=== PATIENT | female | born 1950 | race Caucasian/White ===

== ENCOUNTER 2016-12-19 18:29 | Emergency (ER) | payer MEDICARE, OTHER ==
[2016-12-19 18:53] VITALS: BMI 27.0
[2016-12-19 18:55] VITALS: BP 165/90; PULSE 105; RESP 18; TEMP 98.7; O2SAT 95
--- NOTE | 2016-12-19 19:26 | C.PDOC ---
History Of Present Illness 66 year old female with history of gout complains of left knee pain for 3 days. Patient noticed some swelling to the area yesterday and took Tylenol with no relief. Patient denies direct trauma/injury to affected area, extremity numbness /weakness. Time Seen by Provider: 12/19/16 19:09 Chief Complaint (Nursing): Lower Extremity Problem/Injury History Per: Patient History/Exam Limitations: no limitations Onset/Duration Of Symptoms: Days (3) Current Symptoms Are (Timing): Still Present Additional History Per: Patient - Knee Description Of Injury: denies: Fell, Struck With Object, Struck Against Object, Twisted Past Medical History Reviewed: Historical Data, Nursing Documentation, Vital Signs Vital Signs: Last Vital Signs Temp 98.7 F 12/19/16 18:52 Pulse 105 H 12/19/16 18:52 Resp 18 12/19/16 18:52 BP 165/90 H 12/19/16 18:52 Pulse Ox 95 12/19/16 20:18 - Medical History PMH: Asthma, COPD, HTN Surgical History: No Surg Hx - [facility] Procedures ESOPHAGOGASTRODUODENOSCOPY [EGD] W/CLOSED BIOPSY (07/09/13) NEBULIZER THERAPY (02/09/14) Family History: States: Unknown Family Hx - Social History Hx Alcohol Use: No Hx Substance Use: No - Immunization History Hx Tetanus Toxoid Vaccination: No Hx Influenza Vaccination: No Hx Pneumococcal Vaccination: No Review Of Systems Musculoskeletal: Positive for: Other (left knee pain and swelling ) Neurological: Negative for: Weakness, Numbness Physical Exam - Physical Exam Appears: Non-toxic, No Acute Distress Skin: Normal Color, Warm, Dry, Other (+erythema to left knee ) Head: Atraumatic, Normacephalic Eye(s): bilateral: Normal Inspection Oral Mucosa: Moist Neck: Supple Extremity: Normal ROM, Tenderness (mild to left knee ), No Calf Tenderness, Capillary Refill (less than 2 seconds ), No Deformity, Swelling (mild to left knee ) Pulses: Left Dorsalis Pedis: Normal Neurological/Psych: Normal Speech, Normal Cognition Gait: Steady ED Course And Treatment O2 Sat by Pulse Oximetry: 95 (on RA) Pulse Ox Interpretation: Normal Medical Decision Making Medical Decision Making: Patient with left knee pain for 3 days, no injury and has history of gout. Exam shows tenderness, erythema and mild swelling. Symptoms consistent with gout flare. Will treat with Toradol. On reassessment, patient is resting comfortably, showing no signs of distress, and reports an improvement in her pain. Patient is ambulatory in the ED without distress and is stable for discharge. Patient is advised to follow up with her PMD within 1-2 days for further evaluation. Disposition Counseled Patient/Family Regarding: Diagnosis, Need For Followup, Rx Given - Disposition Referrals: Joshua Robledo MD [Medical Doctor] - Disposition: HOME/ ROUTINE Disposition Time: 19:55 Condition: GOOD Additional Instructions: Please take medication with food as needed for gout pain. Try to rest and elevate leg when you can. 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 - Scribe Statement The provider has reviewed the documentation as recorded by the Scribe (Azul Cowan) All medical record entries made by the Scribe were at my direction and personally dictated by me. I have reviewed the chart and agree that the record accurately reflects my personal performance of the history, physical exam, medical decision making, and the department course for this patient. I have also personally directed, reviewed, and agree with the discharge instructions and disposition.
== END 2016-12-19 19:59 | disposition home or self-care (01) ==
LOC: C.ER 18:29
DX: M10.9 Gout, unspecified (principal)
CPT/HCPCS: 96372; 99284; J1885

== ENCOUNTER 2018-07-11 06:28 | Day surgery (SDC) | payer MEDICARE ==
[2018-04-13 21:14] VITALS: BMI 26.4
[2018-07-11] MEDS ORDERED: Lactated Ringer's 500 ML IV ONE (07:59)
[2018-07-11] MEDS ORDERED: Propofol 10 mg/ml Inj (20 ML) ONE ×2 (08:08→08:27)
--- NOTE | 2018-07-11 08:09 | CP.SDSHP ---
Same Day Surgery H & P - History Proposed Procedure: colonoscopy Pre-Op Diagnosis: Screening for colon cancer - Previous Medical/Surgical History Cardiac: Hypertension Pulmonary: Asthma Endocrine/Metabolic: Thyroid Disease, Diabetes Misc: Other (gout) - Allergies Allergies: Allergies No Known Allergies Allergy (Verified 04/13/18 21:20) - Physical Exam Vital Signs: Vital Signs 07/11/18 06:45 Temperature 97.8 F Pulse Rate 80 Respiratory 20 Rate Blood Pressure 116/89 O2 Sat by Pulse 98 Oximetry Mental Status: Alert & Oriented x3 Neuro: WNL Heart: WNL Lungs: WNL GI: WNL - Impression Impression: screening for colon cancer Pt. Evaluated Today:Candidate for Anesthesia & Procedure: Yes - Date & Time Date: 07/11/18 Time: 08:09 Short Stay Discharge - Short Stay Discharge Admitting Diagnosis/Reason for Visit: SCREENING Disposition: HOME/ ROUTINE
[2018-07-11] MEDS ORDERED: Lidocaine Hydrochloride 5 ML INJ ONE (08:27)
[2018-07-11 09:41] VITALS: BP 120/74; PULSE 75; RESP 19; TEMP 97.9; O2SAT 99
== END 2018-07-11 09:30 | disposition home or self-care (01) ==
LOC: C.ENDO 06:28
PROVIDERS: ATTEND Internal Medicine Gastroenterology
DX: D12.2 Benign neoplasm of ascending colon (principal); Z12.11 Encounter for screening for malignant neoplasm of colon; K64.1 Second degree hemorrhoids; E11.9 Type 2 diabetes mellitus without complications; I10 Essential (primary) hypertension; J45.909 Unspecified asthma, uncomplicated; M10.9 Gout, unspecified
CPT/HCPCS: 45380; 82948; 88305; J2704; J7120